=== PATIENT | female | born 1990 | race Caucasian/White ===

== ENCOUNTER 2020-01-05 18:49 | Emergency (ER) | payer OTHER ==
[~2020-01-05] VITALS: Ht 160 cm; Wt 64.4 kg
[2020-01-05 19:15] VITALS: BP 119/70
--- NOTE | 2020-01-05 19:28 | NUR ---
PATIENT BROUGHT BACK TO BED 11, AMB WITH STEADY GAIT. ACCOMPANIED BY FRIEND.
--- NOTE | 2020-01-05 19:30 | NUR ---
BIB FRIEND WITH REPORTS OF ANXIETY ATTACKS ON AND OFF FOR THE PAST THREE WEEKS. REPROTS SHE HAS STRUGGLED WITH ANXIETY FOR YEARS BUT IT HAS BEEN MUCH WORSE OVER THE PAST 3 WEEKS. PATIENT STATES NO PAIN AT THIS TIME. REPORTS HAVING A PANIC ATTACK THREE HOURS AGO AND WAS FEELING VERY SHAKEY AND TINGLY IN HER EXTREMITIES. STATES SHE HAS MILD NAUSEA BUT NO VOMITING. HX: FIBROMYALGIA, PTSD, ANXIETY
--- NOTE | 2020-01-05 19:51 | NUR ---
Note marthaone in EDM - 01/05/20 at 1951 by EDISON BIB FRIEND WITH REPORTS OF ANXIETY ATTACKS ON AND OFF FOR THE PAST THREE WEEKS. REPROTS SHE HAS STRUGGLED WITH ANXIETY FOR YEARS BUT IT HAS BEEN MUCH WORSE OVER THE PAST 3 WEEKS. PATIENT STATES NO PAIN AT THIS TIME. REPORTS HAVING A PANIC ATTACK THREE HOURS AGO AND WAS FEELING VERY SHAKEY AND TINGLY IN HER EXTREMITIES. STATES SHE HAS MILD NAUSEA BUT NO VOMITING. HX: FIBROMYALGIA, PTSD, ANXIETY
[2020-01-05] MEDS ORDERED: LORazepam 2 MG/ML VIAL IM ONE (20:05)
[2020-01-05 20:44] VITALS: BP 115/68
--- NOTE | 2020-01-05 20:44 | NUR ---
PATIENT STATES REDUCED ANXIETY AND SAYS SHE IS READY TO GO HOME. FRIEND STATES HE IS HER RIDE HOME.
== END 2020-01-05 20:45 | disposition home or self-care (01) ==
LOC: MED 18:49
DX: F41.0 Panic disorder [episodic paroxysmal anxiety] (principal); F17.200 Nicotine dependence, unspecified, uncomplicated; F12.90 Cannabis use, unspecified, uncomplicated
CPT/HCPCS: 96372; 99283; J2060